=== PATIENT | female | born 1985 | race Hispanic/Latino ===

== ENCOUNTER 2018-09-27 06:35 | Outpatient (CLI) | payer OTHER ==
--- NOTE | 2018-09-27 08:23 | ULT ---
OB ULTRASOUND: HISTORY: Size and dates. FINDINGS: A single live intrauterine gestation is seen with measurements corresponding to an estimated gestatio nal age of 24 weeks 0 days and OSCAR At 01/17/2019. The estimated weight measures 670 gm (1 pound 8 ounces). measurements as follows: BPD 5.78 cm, 23 weeks 5 days HC 21.51 cm, 23 weeks 4 days AC 19.50 cm, 24 weeks 2 days FL 4.39 cm, 24 weeks 3 days heart rate measures 130 b.p.m. Placenta is anteriorly located without evidence of placenta pre via. PAUL is 18.92. Presentation is cephalic. The 4-chamber heart is not satisfactorily visualized due to position. The remainder of the juan shereen is otherwise seen and demonstrates no definite anomaly. The 3-vessel cord, cord insertion, feta l kidneys, bladder, stomach, lateral ventricles, cerebellum, spine, lips-nose, and upper and lower ex tremities are visualized. IMPRESSION: Single live intrauterine , estimated gestational age of 24 weeks 0 days and estimated date o f delivery at 01/17/2019. POS: [facility]
== END 2018-09-27 06:36 | disposition home or self-care (01) ==
LOC: BICULT 06:35
PROVIDERS: ATTEND Family Medicine
DX: O09.892 Supervision of other high risk pregnancies, second trimester (principal); Z3A.24 24 weeks gestation of pregnancy
CPT/HCPCS: 76805

== ENCOUNTER 2019-01-13 21:00 | Inpatient (IN) | payer MEDICAID, OTHER, SELFPAY ==
[~2019-01-13 21:00] MED LIST: Bupivacaine 0.25% HCL 30 ML VIAL ONE
[2019-01-13] MEDS ORDERED: Diphenoxylate HCl/Atropine Tablet PO PRN (23:00)
[2019-01-13] MEDS ORDERED: Ibuprofen 800 MG TAB PO PRN (23:00)
[2019-01-13] MEDS ORDERED: Misoprostol 200 MCG TAB PR PRN (23:00)
[2019-01-13] MEDS ORDERED: Ondansetron PF 4 MG/2 ML Vial IVP PRN (23:00)
[2019-01-13] MEDS ORDERED: Butorphanol Tartrate 1 MG/ML VIAL SLOW IVP PRN (23:00)
[2019-01-13] MEDS ORDERED: Carboprost 250 MCG/ML AMP IM PRN (23:00)
[2019-01-13] MEDS ORDERED: Methylergonovine 0.2 MG/ML VIAL IM PRN (23:00)
[2019-01-13] MEDS ORDERED: Lidocaine 1% (PF) 30 ML VIAL SC PRN (23:00)
[2019-01-13] MEDS ORDERED: HYDROcodone/Acetaminophen 5/325 mg Tablet PO PRN (23:00)
[2019-01-13] MEDS ORDERED: NS w/ Oxytocin 10 units 500 ML IV SCH ×2 (23:00)
[2019-01-13 23:11] LABS: Hemoglobin 11.4 g/dL (12.0-16.0); Mean Corpuscular Hemoglobin 30.5 pg (27.0-31.0); Mean Corpuscular Volume 89.7 fL (78.0-98.0); Mean Platelet Volume 7.9 fL (7.4-10.4); Platelet Count 246 thou/uL (130-400); RBC Distribution Width 12.2 % (11.5-14.5); Red Blood Cell (RBC) Count 3.72 mill/uL (4.20-5.40); White Blood Cell (WBC) Count 7.2 thou/uL (4.8-10.8)
[2019-01-13 23:24] VITALS: BMI 43.0
[2019-01-13] MEDS: Misoprostol 100 MCG TAB PO SCH (23:31)
[2019-01-13] MEDS: Lactated Ringer's 1,000 ML IV SCH (23:32)
[2019-01-13 23:50] LABS: Syphilis Antibody Nonreactive (Nonreactive); Syphilis Antibody Index 0.03 S/CO (<1.00 Non-Reactive)
[2019-01-13 23:59] LABS: HBSAg Index 0.27 S/CO (0-0.99); Hep B Surf Ag Non-Reactive S/CO (NonReactive)
[2019-01-14] MEDS: Misoprostol 100 MCG TAB PO SCH ×2 (03:08→08:16)
[2019-01-14] MEDS ORDERED: Misoprostol 100 MCG TAB ONE (08:15)
[2019-01-14] MEDS: Lactated Ringer's 1,000 ML IV SCH ×3 (08:16→17:11)
[2019-01-14] MEDS ORDERED: Fentanyl 4 mcg/Bup 0.1% Cadd 100 ML ONE (11:56)
[2019-01-14] MEDS ORDERED: Lidocaine 1.5%/Epinephrine 1:200,000 5 ML AMPUL IJ ONE (11:57)
[2019-01-14] MEDS: NS / Oxytocin 40 units/1000ml 1,000 ML IV PRN ×2 (18:17→22:45)
[2019-01-14] MEDS ORDERED: Carboprost 250 MCG/ML AMP ONE (18:36)
[2019-01-14] MEDS ORDERED: Misoprostol 200 MCG TAB ONE (18:36)
[2019-01-14] MEDS ORDERED: Ondansetron PF 4 MG/2 ML Vial IVP PRN (22:19)
[2019-01-14] MEDS ORDERED: Lanolin Ointment 7 GM TUBE TOP PRN (22:19)
[2019-01-14] MEDS ORDERED: Milk Of Magnesia 30 ML UDCUP PO PRN (22:19)
[2019-01-14] MEDS ORDERED: HYDROcodone/Acetaminophen 5/325 mg Tablet PO PRN ×2 (22:19)
[2019-01-14] MEDS ORDERED: Benzocaine/Menthol 20-0.5% 60 ML CAN TOP PRN (22:19)
[2019-01-14] MEDS ORDERED: NS / Oxytocin 40 units/1000ml 1,000 ML IV SCH (22:19)
[2019-01-14] MEDS ORDERED: Bisacodyl 10 MG SUPP PR PRN (22:19)
[2019-01-14] MEDS ORDERED: diphenhydrAMINE 25 MG CAP PO PRN (22:19)
[2019-01-14] MEDS: Docusate Calcium (SURFAK) 240 MG CAP PO SCH (23:34)
[2019-01-14] MEDS: Ibuprofen 800 MG TAB PO SCH (23:42)
[2019-01-15 06:36] LABS: Hemoglobin 10.1 g/dL (12.0-16.0); Mean Corpuscular HGB CONC 33.6 g/dL (32.0-36.0); Mean Corpuscular Hemoglobin 30.2 pg (27.0-31.0); Mean Corpuscular Volume 89.9 fL (78.0-98.0); Mean Platelet Volume 7.9 fL (7.4-10.4); Platelet Count 219 thou/uL (130-400); RBC Distribution Width 12.3 % (11.5-14.5); Red Blood Cell (RBC) Count 3.34 mill/uL (4.20-5.40); White Blood Cell (WBC) Count 9.5 thou/uL (4.8-10.8)
[2019-01-15] MEDS: Ibuprofen 800 MG TAB PO SCH ×2 (06:41→14:38)
[2019-01-15] MEDS ORDERED: Prenatal Vitamin 1 TAB PO SCH (09:00)
[2019-01-15] MEDS: Ferrous Sulfate 325 MG TAB PO SCH ×2 (09:29→18:39)
[2019-01-15] MEDS: Docusate Calcium (SURFAK) 240 MG CAP PO SCH (09:30)
[2019-01-15 11:49] VITALS: TEMP 98.2
[2019-01-15 18:56] VITALS: BP 118/61
== END 2019-01-15 18:58 | disposition home or self-care (01) | DRG 806 ==
LOC: L&D 22:07 → 3SW 01-14 22:49
PROVIDERS: ADMIT Family Medicine; ATTEND Family Medicine
PROC: 10E0XZZ Delivery of Products of Conception, External Approach (ICD-10-PCS; principal; 2019-01-14)
PROC: 10907ZC Drainage of Amniotic Fluid, Therapeutic from Products of Conception, Via Natural or Artificial Opening (ICD-10-PCS; 2019-01-14)
PROC: 3E0P7VZ Introduction of Hormone into Female Reproductive, Via Natural or Artificial Opening (ICD-10-PCS; 2019-01-14)
PROC: 0W8NXZZ Division of Female Perineum, External Approach (ICD-10-PCS; 2019-01-14)
DX: O48.0 Post-term pregnancy (principal); O72.1 Other immediate postpartum hemorrhage; Z37.0 Single live birth; O99.214 Obesity complicating childbirth; E66.9 Obesity, unspecified; Z3A.40 40 weeks gestation of pregnancy
CPT/HCPCS: 36415; 51702; 85027; 86780; 86850; 86900; 86901; 87340; J2001; J2210; J3490; S0020